=== PATIENT | male | born 1975 | race African-American/Black ===

== ENCOUNTER 2017-06-19 08:35 | Emergency (ER) | payer OTHER ==
[~2017-06-19] VITALS: Ht 177.8 cm; Wt 95.3 kg
[2017-06-19 08:52] VITALS: BP 117/76
[2017-06-19] MEDS ORDERED: NORCO 5-325 TA1 EACH ORAL (09:19)
[2017-06-19] MEDS ORDERED: IBUPROFEN600 MG ORAL (09:19)
[2017-06-19 09:25] VITALS: BP 117/76
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
== END 2017-06-19 09:26 | disposition home or self-care (01) ==
LOC: EMR 09:04
DX: S22.9XXD Fracture of bony thorax, part unspecified, subsequent encounter for fracture with routine healing (principal); V28.4XXD Motorcycle driver injured in noncollision transport accident in traffic accident, subsequent encounter
CPT/HCPCS: 99284

== ENCOUNTER 2018-02-19 06:37 | Emergency (ER) | payer OTHER ==
[~2018-02-19] VITALS: Ht 177.8 cm; Wt 89.8 kg
[~2018-02-19 06:37] MED LIST: IBUPROFEN600 MG ORAL; NORCO 5-325 TA1 EACH ORAL
[2018-02-19 06:55] VITALS: BP 117/74
[2018-02-19] MEDS ORDERED: Methocarbamol 750mg tab ORAL ONE (07:15)
[2018-02-19] MEDS ORDERED: Bacitracin Oint UD TOPIC ONE (07:45)
[2018-02-19] MEDS ORDERED: IBUPROFEN600 MG ORAL (07:55)
[2018-02-19] MEDS ORDERED: ROBAXIN-750750 MG PO (07:55)
[2018-02-19 08:06] VITALS: BP 115/75
[2018-02-19 08:08] VITALS: BP 117/74
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
--- NOTE | 2018-02-19 12:00 | Diagnostic Imaging Report ---
Indications: Knee pain Technique: Three views of the left knee Comparison: None Findings: No acute fractures. No dislocations. Joint spaces are preserved. No radiopaque foreign body. Normal mineralization. Impression: No acute process
== END 2018-02-19 08:10 | disposition home or self-care (01) ==
LOC: EMR 07:32
DX: S51.811A Laceration without foreign body of right forearm, initial encounter (principal); S89.92XA Unspecified injury of left lower leg, initial encounter; Y09 Assault by unspecified means
CPT/HCPCS: 12002; 73562; 99284; Z7502

== ENCOUNTER 2018-02-24 13:43 | Emergency (ER) | payer OTHER ==
[~2018-02-24] VITALS: Ht 180.3 cm; Wt 83.9 kg
[~2018-02-24 13:43] MED LIST changes: +ROBAXIN-750750 MG PO
--- NOTE | 2018-02-24 14:06 | Emergency Room Report ---
History of Present Illness General Chief Complaint: Wound Recheck/Suture Removal Source: Patient Present Illness HPI 42 YO Male presents to the ED c/o kai in the left forearm that need to be removed s/p wound closure 5 days ago. denies fevers, chills, bleeding or discharge from the wound. denies erythema. pt. reports he was rx'd antibiotics however he did not fill the rx and did not take them, he was doing self-care at home. Denies pain at this time. Allergies: Coded Allergies: No Known Allergies (Unverified , 06/19/17) Patient History Past Medical History: see triage record Past Surgical History: none Pertinent Family History: none Immunizations: UTD Reviewed Nursing Documentation: PMH: Agreed; PSxH: Agreed Nursing Documentation-PMH Past Medical History: No Stated History Review of Systems All Other Systems: negative except mentioned in HPI Physical Exam Vital Signs Date Time Temp Pulse Resp B/P (MAP) Pulse Ox O2 Delivery O2 Flow Rate FiO2 02/24/18 13:53 98.0 78 20 127/73 99 Room Air 98.1 Sp02 EP Interpretation: reviewed, normal General Appearance: no apparent distress, alert, GCS 15, non-toxic Head: normocephalic, atraumatic ENT: hearing grossly normal, normal voice Neck: full range of motion Respiratory: lungs clear, normal breath sounds, speaking full sentences Cardiovascular #1: regular rate, rhythm Gastrointestinal: non tender, soft Musculoskeletal: gait/station normal, normal range of motion Neurologic: alert, oriented x3, responsive, motor strength/tone normal, sensory intact, normal gait, speech normal, grossly normal Psychiatric: judgement/insight normal Skin: normal color, no rash, warm/dry, well hydrated, wd healing/no infection noted - laceration of the right forearm with 4 kai. Medical Decision Making PA Attestation Dr. Valdes is my supervising Physician whom patient management has been discussed with. Diagnostic Impression: Primary Impression: Encounter for staple removal ER Course 42 YO Male presents to the ED c/o kai in the left forearm that need to be removed s/p wound closure 5 days ago. denies fevers, chills, bleeding or discharge from the wound. denies erythema. pt. reports he was rx'd antibiotics however he did not fill the rx and did not take them, he was doing self-care at home. Denies pain at this time. Ddx considered but are not limited to laceration, tendon injury, cellulitis, dehiscence. Vital signs: are WNL, pt. is afebrile H&PE are most consistent with: healed laceration of the left forearm no evidence of secondary infection. ORDERS: none required at this time, the diagnosis is clinical ED INTERVENTIONS: - 4 Kai removed. DISCHARGE: At this time pt. is stable for d/c to home. Will provide printed patient care instructions, and any necessary prescriptions. Care plan and follow up instructions have been discussed with the patient prior to discharge. Last Vital Signs Date Time Temp Pulse Resp B/P (MAP) Pulse Ox O2 Delivery O2 Flow Rate FiO2 02/24/18 13:53 98.0 78 20 127/73 99 Room Air 98.1 Disposition: HOME, SELF-CARE Condition: Stable Scripts Bacitracin/Polymyxin B Sulfate (BACITRACIN-POLYMYXIN OINTMENT) 28.35 Gm Oint...g. 1 APPLIC TP BID, #28.3 GM Prov: Lisha Benson 02/24/18 Emollient Combination No.46 (MEDERMA) 20 Gm Cream..g. 1 APPLIC TP TID, #20 GM Prov: Lisha Benson 02/24/18 Patient Instructions: Wound Closure Removal Additional Instructions: Take medications as directed. Follow up with a Primary Care Provider in 3-5 days, even if your symptoms have resolved. --Please review list of primary care clinics, if you do not already have a primary care provider Return sooner to ED if new symptoms occur, or current symptoms become worse. - Please note that this Emergency Department Report was dictated using [employer] stay stitcher technology software, occasionally this can lead to erroneous entry secondary to interpretation by the dictation equipment. Lisha Benson February 24, 2018 14:06
[2018-02-24] MEDS ORDERED: BACITRACIN-P28.35 GM TP (14:17)
[2018-02-24] MEDS ORDERED: MEDERMA20 GM TP (14:17)
[2018-02-24 14:29] VITALS: BP 135/85
[2018-02-24 14:30] VITALS: BP 135/85
== END 2018-02-24 14:33 | disposition home or self-care (01) ==
LOC: EMR 14:11
DX: S51.811D Laceration without foreign body of right forearm, subsequent encounter (principal); X58.XXXD Exposure to other specified factors, subsequent encounter; Z48.02 Encounter for removal of sutures
CPT/HCPCS: 99284

== ENCOUNTER 2019-08-21 17:29 | Emergency (ER) | payer OTHER ==
[~2019-08-21] VITALS: Ht 177.8 cm; Wt 92.1 kg
[~2019-08-21 17:29] MED LIST changes: +BACITRACIN-P28.35 GM TP; +MEDERMA20 GM TP; +NKM
[2019-08-21 18:00] VITALS: BP 129/86
[2019-08-21 18:14] LABS: APPEARANCE,URINE CLEAR; BASOPHILS % (AUTO) 1.2 % (0.0-2.0); BILIRUBIN, URINE NEGATIVE (NEGATIVE); EOSINOPHILS % (AUTO) 0.6 % (0.0-3.0); GLUCOSE, URINE (UA) NEGATIVE (NEGATIVE); HEMATOCRIT 43.6 % (42.0-52.0); KETONES,URINE NEGATIVE (NEGATIVE); LEUKOCYTE ESTERASE ,URINE NEGATIVE (NEGATIVE); LYMPHOCYTES % (AUTO) 9.9 % (20.0-45.0); MEAN CORPUSCULAR VOLUME 86 FL (80-99); NEUTROPHILS % (AUTO) 82.3 % (45.0-75.0); NITRITE,URINE NEGATIVE (NEGATIVE); PH,URINE 6 (4.5-8.0); PLATELET COUNT 251 K/UL (150-450); PROTEIN,URINE NEGATIVE (NEGATIVE); RED BLOOD COUNT 5.07 M/UL (4.70-6.10); RED CELL DISTRIBUTION WIDTH 10.9 % (11.6-14.8); UROBILINOGEN,URINE 1 MG/DL (0.0-1.0); WHITE BLOOD COUNT 12.7 K/UL (4.8-10.8)
[2019-08-21 18:15] LABS: COLOR,URINE YELLOW
[2019-08-21 18:27] LABS: ANION GAP 11 mmol/L (5-15); BLOOD UREA NITROGEN 9 mg/dL (7-18); CALCIUM 9.6 MG/DL (8.5-10.1); CARBON DIOXIDE 25 MMOL/L (21-32); CHLORIDE 106 MMOL/L (98-107); CREATININE 1.5 MG/DL (0.55-1.30); POTASSIUM 4.4 MMOL/L (3.5-5.1); SODIUM 142 MMOL/L (136-145)
[2019-08-21 18:32] LABS: ALANINE AMINOTRANSFERASE 28 U/L (12-78); ALBUMIN 4.4 G/DL (3.4-5.0); ALBUMIN/GLOBULIN RATIO 1.3 (1.0-2.7); ALKALINE PHOSPHATASE 64 U/L (46-116); ASPARTATE AMINO TRANSFERASE 24 U/L (15-37); BILIRUBIN,TOTAL 0.6 MG/DL (0.2-1.0)
--- NOTE | 2019-08-21 18:40 | NUR ---
ED Nurse Note:pt. came with c/o of near syncopal episode, he is drugs user, A/Ox4 ambulatory with steady gait, blood and urine sent to labs, pt. received IV fluids and meds
--- NOTE | 2019-08-21 19:13 | Diagnostic Imaging Report ---
Indication: Headache Technique: Contiguous 5 mm thick transaxial imaging of the head obtained in a Siemens Sensation [address] scanner. Soft tissue and bone windows generated. Automatic Exposure Control was utilized. Total Dose length Product (DLP): [address] Dose Index Volume (CTDIvol): 62.7 mGy Comparison: none Findings: The size and configuration of the cortical sulci, basal cisterns, and ventricles are within normal limits for age. There is no mass effect, midline shift, or edema identified. There is no evidence of acute hemorrhage or abnormal intra-axial or extra-axial fluid collections. The bones and soft tissues are unremarkable. Impression: No mass effect, edema or acute bleed. [facility] has communicated the preliminary results to the Emergency Department. Their findings are largely concordant with this report. The CT scanner at [facility] is accredited by the [employer] and the scans are performed using dose optimization techniques as appropriate to a performed exam including Automatic Exposure control.
[2019-08-21 19:16] VITALS: BP 125/77
--- NOTE | 2019-08-21 19:16 | NUR ---
ED Nurse Note: Received report from Jessica ADAMES. Pt seen sleeping quitely in bed. No SOB. Breathing even and unlabored. Afebrile. On NS 1L, patent and infusing well.
--- NOTE | 2019-08-21 19:34 | Emergency Room Report ---
History of Present Illness General Chief Complaint: Syncope Source: Patient Present Illness HPI 43-year-old male with no significant past medical history here complaining of having a blackout an hour prior to arrival after consumption of alcohol as well as using PCP. Patient denies any head injury however reports that there is a cut on his right lower eyelid. Denies blurry vision, headache and dizziness. Denies nausea vomiting. Denies head injury and loss of consciousness, chest pain, shortness of breath, palpitation, abdominal pain. Has not taken medication for symptom relief. Patient reports that he worked long hours yesterday and was super Tired feeling exhausted and consumed alcohol use PCP today. Denies other associated symptoms, urinary symptoms, recent URI symptoms , photophobia, recent cardiac disease, hypertension, and other associated symptoms. Patient is also a daily tobacco smoker. Allergies: Coded Allergies: No Known Allergies (Unverified , 06/19/17) Patient History Past Medical History: see triage record Past Surgical History: unable to obtain Pertinent Family History: none Immunizations: UTD Reviewed Nursing Documentation: PMH: Agreed; PSxH: Agreed Nursing Documentation-PMH Past Medical History: No Stated History Review of Systems All Other Systems: negative except mentioned in HPI Physical Exam Vital Signs Date Time Temp Pulse Resp B/P (MAP) Pulse Ox O2 Delivery O2 Flow Rate FiO2 08/21/19 17:35 98.2 89 18 129/86 (100) 99 Room Air Sp02 EP Interpretation: reviewed, normal General Appearance: no apparent distress, alert, GCS 15, non-toxic Head: normocephalic, atraumatic Eyes: bilateral eye normal inspection, bilateral eye PERRL ENT: hearing grossly normal, normal pharynx, no angioedema, normal voice Neck: full range of motion, supple, thyroid normal, no meningismus, no bony tend, supple/symm/no masses Respiratory: chest non-tender, lungs clear, normal breath sounds, no rhonchi, no wheezing, speaking full sentences Cardiovascular #1: regular rate, rhythm, no edema, no murmur Cardiovascular #2: 2+ carotid (R), 2+ carotid (L) Gastrointestinal: normal bowel sounds, non tender, soft, non-distended, no guarding, no hernia, no rebound Genitourinary: no CVA tenderness Musculoskeletal: back normal, gait/station normal, normal range of motion, non- tender Neurologic: alert, oriented x3, responsive, motor strength/tone normal, sensory intact, speech normal Psychiatric: judgement/insight normal, memory normal, mood/affect normal, no suicidal/homicidal ideation Skin: no rash Lymphatic: no adenopathy Medical Decision Making PA Attestation Diagnosis and treatment plans were reviewed and discussed with my supervising physician Dr. Matehws Diagnostic Impression: Primary Impression: Facial contusion Additional Impressions: Black-out (not amnesia) PCP (phencyclidine) abuse Alcohol abuse ER Course 43-year-old male with no significant past medical history here complaining of having a blackout an hour prior to arrival after consumption of alcohol as well as using PCP. Patient denies any head injury however reports that there is a cut on his right lower eyelid. Denies blurry vision, headache and dizziness. Denies nausea vomiting. Denies head injury and loss of consciousness, chest pain, shortness of breath, palpitation, abdominal pain. Has not taken medication for symptom relief. Patient reports that he worked long hours yesterday and was super Tired feeling exhausted and consumed alcohol use PCP today. Denies other associated symptoms, urinary symptoms, recent URI symptoms , photophobia, recent cardiac disease, hypertension, and other associated symptoms. Patient is also a daily tobacco smoker. Ddx considered but are not limited to: cerebral hematoma, concussion, skull fracture, head contusion Vital signs: are WNL, pt. is afebrile H&PE are most consistent with: Facial contusion,, PCP and alcohol abuse ORDERS: head CT no contrast, EKG, chest x-ray, CBC, CMP, UA, Zofran, omeprazole ED INTERVENTIONS: NS blood bolus, Zofran, Pepcid DISCHARGE: At this time pt. is stable for d/c to home. Will provide printed patient care instructions, and any necessary prescriptions. Care plan and follow up instructions have been discussed with the patient prior to discharge. Take medication as directed, avoid using alcohol on PCP, follow with your primary care provider. Cardiac versus neurological causes of blackouts were ruled out. EKG Diagnostic Results Rate: normal Rhythm: NSR ST Segments: no acute changes Other Impression No acute ST changes Chest X-Ray Diagnostic Results Chest X-Ray Diagnostic Results : Chest X-Ray Ordered: Yes # of Views/Limited/Complete: 1 View Indication: Other EP Interpretation: Yes ISA Xray: Interpretation reviewed, by supervising MD, and agrees with findings. Interpretation: no consolidation, no effusion, no pneumothorax Impression: No acute disease Electronically Signed by: Raiza Dupree PA-C CT/MRI/US Diagnostic Results CT/MRI/US Diagnostic Results : Imaging Test Ordered: Head CT no contrast Impression No intracranial hemorrhage, no skull fracture Last Vital Signs Date Time Temp Pulse Resp B/P (MAP) Pulse Ox O2 Delivery O2 Flow Rate FiO2 08/21/19 19:16 98.5 87 19 125/77 98 Room Air Disposition: HOME, SELF-CARE Condition: Stable Scripts Ibuprofen* (MOTRIN*) 600 Mg Tablet 600 MG ORAL Q6H PRN for For Pain, #30 TAB Prov: Raiza Monet 08/21/19 Omeprazole (OMEPRAZOLE) 20 Mg Tablet.dr 20 MG ORAL DAILY, #20 TAB Prov: Raiza Monet 08/21/19 Ondansetron (Zofran) 4 Mg Tablet 4 MG ORAL Q6H PRN for Nausea & Vomiting, #10 TAB Prov: Raiza Monet 08/21/19 Referrals: [facility],REFERR[facility] (PCP) Patient Instructions: Alcohol Intoxication, [id number], Facial or Scalp Contusion, [id number] Additional Instructions: Take medication as directed, avoid using PCP as well as alcohol. Follow-up with your primary care provider. If worsening symptoms return to the emergency room. Raiza Monet Aug 21, 2019 19:34
[2019-08-21] MEDS ORDERED: OMEPRAZOLE20 M3 ORAL (19:35)
[2019-08-21] MEDS ORDERED: ZOFRAN4 M1 ORAL (19:35)
[2019-08-21] MEDS ORDERED: IBUPROFEN600 MG ORAL (19:35)
[2019-08-21 19:43] VITALS: BP 125/77
--- NOTE | 2019-08-21 19:43 | NUR ---
ED Nurse Note: Pt cleared by ERMD for discharge. DC instructions/prescription was given and explained to pt and verbalized understanding of teachings. All medical deviecs such as ID band and IV line removed. Pt is AAO x4, ambulatory and left with all personal belongings.
--- NOTE | 2019-08-22 14:20 | Cardiology Report ---
APPROVED REPORT EKG Measurement Heart [id number] MD [id number] Normal sinus rhythm Normal ECG
--- NOTE | 2019-08-22 14:20 | Diagnostic Imaging Report ---
Indication: Chest pain Comparison: None A single view chest radiograph was obtained. Findings: Cardiomediastinal appearance is within normal limits for age. The lungs are clear. Pulmonary vascularity is appropriate. The diaphragmatic contour is smooth and costophrenic angles are sharp. No pleural effusions are identified. The bones are unremarkable. Impression: No acute findings
== END 2019-08-21 19:43 | disposition home or self-care (01) ==
LOC: EMR 17:48
DX: S00.83XA Contusion of other part of head, initial encounter (principal); R55 Syncope and collapse; F16.10 Hallucinogen abuse, uncomplicated; F10.10 Alcohol abuse, uncomplicated; R07.9 Chest pain, unspecified; F17.200 Nicotine dependence, unspecified, uncomplicated; X58.XXXA Exposure to other specified factors, initial encounter; Y92.9 Unspecified place or not applicable
CPT/HCPCS: 36415; 70450; 71045; 80053; 80307; 81001; 84484; 85025; 85610; 85730; 93005; 96361; 96374; 96375; J2405; S0028; Z7502; 99284; J7030

== ENCOUNTER 2019-12-08 01:33 | Emergency (ER) | payer OTHER ==
[~2019-12-08] VITALS: Ht 177.8 cm; Wt 91.6 kg
[~2019-12-08 01:33] MED LIST changes: +OMEPRAZOLE20 M3 ORAL; +ZOFRAN4 M1 ORAL
[2019-12-08 01:45] VITALS: BP 148/97
--- NOTE | 2019-12-08 01:45 | NUR ---
ED Nurse Note: Pt walked into ED for c/o cough x1 week and CP that is sharp in nature. Pt notes recent illness. Pt is aaox4, no cardiac or respiratory distress noted.
[2019-12-08] MEDS ORDERED: GUAIFENESIN DM118 M1 ORAL (02:19)
[2019-12-08] MEDS ORDERED: ZITHROMAX250 MG ORAL (02:19)
--- NOTE | 2019-12-08 02:19 | Emergency Room Report ---
History of Present Illness General Chief Complaint: Upper Respiratory Illness Source: Patient Present Illness HPI This a 44-year-old male with no past medical history. He presents with chief complaint of coughing and chest pain. Ongoing for a week. Also with subjective fever. Decreased activities. He said he was weak but not getting better after weeks or so he came in. Coughing is nonproductive nature. No other complaint. Worse with inspiration. Better with rest. Allergies: Coded Allergies: No Known Allergies (Unverified , 06/19/17) Patient History Past Medical History: see triage record, old chart reviewed Past Surgical History: none Pertinent Family History: none Social History: Reports: smoking Immunizations: other Reviewed Nursing Documentation: PMH: Agreed; PSxH: Agreed Nursing Documentation-PMH Past Medical History: No Stated History Review of Systems Constitutional: Reports: chills, fever, malaise, weakness Eye: Denies: eye pain, blurred vision ENT: Denies: ear pain, nose congestion, throat swelling Respiratory: Reports: cough; Denies: shortness of breath Cardiovascular: Reports: chest pain; Denies: palpitations Gastrointestinal: Denies: abdominal pain, diarrhea, nausea, vomiting Musculoskeletal: Denies: back pain, joint pain Skin: Denies: rash Neurological: Denies: headache, numbness Endocrine: Denies: increased thirst, increased urine Hematologic/Lymphatic: Denies: easy bruising All Other Systems: negative except mentioned in HPI Physical Exam Vital Signs Date Time Temp Pulse Resp B/P (MAP) Pulse Ox O2 Delivery O2 Flow Rate FiO2 12/08/19 01:35 98.1 79 18 148/97 (114) 97 Room Air Vitals normal except for high blood pressure Sp02 EP Interpretation: reviewed, normal General Appearance: well appearing, no apparent distress, alert, other - Patient was sleeping comfortably Head: normocephalic, atraumatic Eyes: bilateral eye PERRL, bilateral eye EOMI ENT: hearing grossly normal, normal pharynx Neck: full range of motion, supple, no meningismus Respiratory: chest non-tender, lungs clear, normal breath sounds Cardiovascular #1: regular rate, rhythm, no murmur Gastrointestinal: normal bowel sounds, non tender, no mass, no organomegaly, no bruit, non-distended Musculoskeletal: back normal, normal range of motion, gait/station normal Psychiatric: mood/affect normal Medical Decision Making Diagnostic Impression: Primary Impression: Cough ER Course Patient with a cough that not resolving after a week. Subjective fever. This is most likely a viral infection. Because been going on for a week we will put him on antibiotics. He does have a history of PCP abuse. No evidence of ACS, PE, dissection Tamiflu. Will discharge home. Last Vital Signs Date Time Temp Pulse Resp B/P (MAP) Pulse Ox O2 Delivery O2 Flow Rate FiO2 12/08/19 01:35 98.1 79 18 148/97 (114) 97 Room Air Status: unchanged Disposition: HOME, SELF-CARE Condition: Stable Scripts Guaifenesin/Dextromethorphan* (Guaifenesin Dm Syrup*) 5 Ml Syrup 10 ML ORAL Q6H PRN for FOR COUGH, #118 ML Prov: Luis Bah MD 12/08/19 Azithromycin* (ZITHROMAX*) 250 Mg Tablet 250 MG ORAL DAILY, #6 TAB 0 Refills Take two tables once daily for 1 day, then one tablet once daily for 4 days. Prov: Luis Bah MD 12/08/19 Referrals: [facility],REFERRING (PCP) Patient Instructions: Upper Respiratory Infection, Adult Additional Instructions: Stop smoking. Follow-up with your doctor in 7 days. Return if symptoms worsen. Luis Bah MD Dec 08, 2019 02:19
[2019-12-08] MEDS ORDERED: Albuterol ud Inhalation HHN ONE (02:30)
[2019-12-08 02:50] VITALS: BP 148/97
--- NOTE | 2019-12-08 02:50 | NUR ---
ER DISCHARGE NOTE: Patient is cleared to be discharged per ERMD, pt is aox4, on room air, with stable vital signs. pt was given dc and prescription instructions, pt was able to verbalize understanding, pt id band removed. pt is able to ambulate with steady gait. pt took all belongings.
== END 2019-12-08 02:50 | disposition home or self-care (01) ==
LOC: EMR 02:14
DX: R05 Cough (principal); R07.9 Chest pain, unspecified; R53.1 Weakness; R50.9 Fever, unspecified
CPT/HCPCS: 99283

== ENCOUNTER 2020-09-17 08:42 | Emergency (ER) | payer OTHER ==
[~2020-09-17] VITALS: Ht 177.8 cm; Wt 97.5 kg
[~2020-09-17 08:42] MED LIST changes: +GUAIFENESIN DM118 M1 ORAL; +ZITHROMAX250 MG ORAL
--- NOTE | 2020-09-17 09:00 | NUR ---
ED Nurse Note: Pt ambulated to ED from home d/t lower back pain that has been going on for a week. Pt is AOx4, calm and cooperative to care, pt denies any dysuria nor any recent injury, VSS, no acute distress noted.
[2020-09-17 09:03] VITALS: BP 154/92
--- NOTE | 2020-09-17 09:09 | Emergency Room Report ---
History of Present Illness General Chief Complaint: Back Pain-No Injury Source: Patient Present Illness HPI Disclaimer: Please note that this report is being documented using DRAGON technology. This can lead to erroneous entry secondary to incorrect interpretation by the dictating instrument. HPI: 45-year-old male with no reported medical history presents for evaluation of back pain. 2 weeks ago he bent over to pick something up felt a pain in his lower back. Nonradiating. Located in the lower lumbar region. Denies numbness, tingling or weakness in the lower extremities. Denies saddle anesthesia. Urinating without difficulty. Denies urinary or fecal in continence. Denies dysuria, hematuria, abdominal pain, nausea, vomiting, diarrhea, fever, chills, cough, chest pain, shortness of breath or other symptoms. Has not taken any medication prior to arrival. Exacerbated by bending and twisting motion somewhat relieved by rest. Pain appears to come and go and is more severe today. No trauma reported. 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 EOMI. Resp: Normal work of breathing Skin: Intact. No abrasions, laceration or rash over the exposed skin MSK: Normal tone and bulk. Moving all extremities. No obvious deformity. Neuro: Awake and alert. Mentating appropriately. Ambulating without di fficulty. Strength is 5/5 at the hips, knees and ankles. No saddle anesthesia. Spine: No tenderness, step-off and deformity in the cervical or thoracic spine. Moderate paraspinal tenderness bilaterally in the lower lumbar spine extending over the gluteus. No significant midline tenderness step-off or deformity. Medical Decision Making ER Course 45-year-old male presents for evaluation of back pain after bending over 2 weeks ago. Concern for degenerative disc disease, muscle strain, muscle spasm, herniated disc, sciatica among others. Little clinical concern for spinal epidural abscess, metastasis or cauda equina syndrome based on physical exam and history. Do not believe the patient requires emergent labs or imaging as there is no reported trauma. Will treat symptomatically and follow-up with outpatient. Last Vital Signs Date Time Temp Pulse Resp B/P (MAP) Pulse Ox O2 Delivery O2 Flow Rate FiO2 09/17/20 09:03 98.8 18 154/92 95 Room Air 09/17/20 08:48 78 Disposition: HOME, SELF-CARE Condition: Stable Scripts Hydrocodone Bit/Acetaminophen 5-325* (NORCO 5-325 TABLET*) 1 Each Tablet 1 TAB ORAL Q6H PRN for FOR PAIN, #10 TAB 0 Refills Prov: Cuong Sánchez MD 09/17/20 Lidocaine (Lidocaine) 1 Each Adh..patch 700 MG TP DAILY, #30 PATCH Prov: Cuong Sánchez MD 09/17/20 Methocarbamol* (ROBAXIN-750*) 750 Mg Tablet 750 MG PO QID, #28 TAB 0 Refills Prov: Cuong Sánchez MD 09/17/20 Ibuprofen* (MOTRIN*) 600 Mg Tablet 600 MG ORAL Q6H PRN for For Pain, #30 TAB 0 Refills Prov: Cuong Sánchez MD 09/17/20 Cuong Sánchez MD Sep 17, 2020 09:09
[2020-09-17] MEDS ORDERED: IBUPROFEN600 M1 ORAL (09:11)
[2020-09-17] MEDS ORDERED: LIDOCAINE700 M1 TP (09:11)
[2020-09-17] MEDS ORDERED: ROBAXIN-750750 MG PO (09:11)
[2020-09-17] MEDS ORDERED: NORCO 5-325 TA1 EAC1 ORAL (09:11)
[2020-09-17] MEDS ORDERED: HYDROcodone/Acetamin 5/325 tab ONE (09:12)
[2020-09-17] MEDS ORDERED: HYDROcodone/Acetamin 5/325 tab ORAL ONE (09:15)
[2020-09-17 09:35] VITALS: BP 148/90
== END 2020-09-17 09:35 | disposition home or self-care (01) ==
LOC: EMR 09:00 → CANBEDREQ 10:01
DX: M54.5 Low back pain (principal)
CPT/HCPCS: 99282

== ENCOUNTER 2020-09-19 09:46 | Emergency (ER) | payer OTHER ==
[~2020-09-19] VITALS: Ht 172.7 cm; Wt 81.6 kg
[~2020-09-19 09:46] MED LIST changes: +IBUPROFEN600 M1 ORAL; +LIDOCAINE700 M1 TP; +NORCO 5-325 TA1 EAC1 ORAL
--- NOTE | 2020-09-19 10:07 | NUR ---
ED Nurse Note: PT is ambulatory and walked in from home. He staes that he recently was working out of state, in [facility], and while he was working he "tweaked his back." He stated that he woke up and it felt worse today. He states the pain in from his lower back and radiates to the right leg.
--- NOTE | 2020-09-19 10:19 | NUR ---
ELOPEMENT: Pt became aggitated with staff and said "i dont want to be here in the hospital anymore, I feel uncomfortable" and walked out into the waiting room. Pt walked with a steady gait, AxOx4, breathing was even and unlabored, no signs of distress noted.
--- NOTE | 2020-09-19 10:20 | NUR ---
ED Nurse Note: pt left without being seen, attempted to assess initial vitals but patient stated he wanted to leave.
--- NOTE | 2020-09-19 10:36 | NUR ---
ED Nurse Note: Pt as re-educated by the triage nurse to ED procedures and protocol and the pt decided that he would like to be seen by the physician again. Pt was understanding and returned to the room. He is ow chavez and cooperative with staff. Addendum: 09/19/20 at 1037 by BELLA *calm and cooperative
--- NOTE | 2020-09-19 10:40 | NUR ---
ED Nurse Note: ED MD @ bedside
[2020-09-19 10:48] VITALS: BP 147/94
[2020-09-19] MEDS ORDERED: NORCO 5-325 TA1 EAC1 ORAL (11:00)
[2020-09-19] MEDS ORDERED: IBUPROFEN600 M1 ORAL (11:00)
[2020-09-19] MEDS ORDERED: ROBAXIN-750750 MG PO (11:00)
[2020-09-19] MEDS ORDERED: Ketorolac 30mg Inj IM ONE (11:00)
[2020-09-19] MEDS ORDERED: Methocarbamol 750mg tab ORAL ONE (11:00)
[2020-09-19] MEDS ORDERED: LIDOCAINE700 M1 TP (11:00)
[2020-09-19 11:10] VITALS: BP 126/68
--- NOTE | 2020-09-19 11:10 | NUR ---
ER DISCHARGE NOTE: Patient is cleared to be discharged per ERMD, pt is aox4, on room air, with stable vital signs. pt was given dc and prescription instructions, pt was able to verbalize understanding, pt id band removed without complications. pt is able to ambulate with steady gait. pt took all belongings. Addendum: 09/19/20 at 1114 by BELLA Pt discharged to home. By private car and friend is the team cdl driver.
--- NOTE | 2020-09-20 07:01 | Emergency Room Report ---
History of Present Illness General Chief Complaint: Back Pain-No Injury Source: Patient Present Illness HPI 45-year-old male presents to ED for evaluation. Complaining of back pain. Was seen here last week for the same back pain. States that he was prescribed medication but states that he thought it was sent to his pharmacy and it was not. Is here for his prescriptions. Pain is dull, 7 out of 10, nonradiating. Denies bowel or bladder incontinence. Denies any leg or motor weakness. No other aggravating relieving factors. 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 Patient History Past Medical History: none Past Surgical History: none Pertinent Family History: none Social History: Denies: smoking, alcohol use, drug use Immunizations: UTD Reviewed Nursing Documentation: PMH: Agreed; PSxH: Agreed Nursing Documentation-PMH Past Medical History: No Stated History Review of Systems All Other Systems: negative except mentioned in HPI Physical Exam Vital Signs Date Time Temp Pulse Resp B/P (MAP) Pulse Ox O2 Delivery O2 Flow Rate FiO2 09/19/20 09:50 98.8 89 18 147/94 (111) 98 Room Air Sp02 EP Interpretation: reviewed, normal General Appearance: no apparent distress, alert, GCS 15, non-toxic Head: normocephalic, atraumatic Eyes: bilateral eye normal inspection, bilateral eye PERRL ENT: hearing grossly normal, normal pharynx, no angioedema, normal voice Neck: full range of motion, supple/symm/no masses Respiratory: chest non-tender, lungs clear, normal breath sounds, speaking full sentences Cardiovascular #1: regular rate, rhythm, no edema Cardiovascular #2: 2+ carotid (R), 2+ carotid (L), 2+ radial (R), 2+ radial (L), 2+ dorsalis pedis (R), 2+ dorsalis pedis (L) Gastrointestinal: normal bowel sounds, non tender, soft, non-distended, no guarding, no rebound Rectal: deferred Genitourinary: normal inspection, no CVA tenderness Musculoskeletal: back normal, normal range of motion, gait/station normal, tender - Paraspinal lumbar tenderness Neurologic: alert, motor strength/tone normal, oriented x3, sensory intact, responsive, speech normal Psychiatric: judgement/insight normal, memory normal, mood/affect normal, no suicidal/homicidal ideation Reflexes: 3+ bicep (R), 3+ bicep (L), 3+ tricep (R), 3+ tricep (L), 3+ knee (R), 3+ knee (L) Skin: no rash Lymphatic: no adenopathy Medical Decision Making Diagnostic Impression: Primary Impression: Back pain Qualified Codes: M54.5 - Low back pain ER Course Hospital Course 45-year-old male presents with back pain. Unable to receive his prescriptions last week Differential diagnoses include: pyelonephritis, kidney stone, muscle strain, Lspine fracture Clinical course Patient placed on stretcher. After initial history physical exam reveals male in no acute distress. There is no midline tenderness. Pain is localized to the lower back. Negative straight leg raise. Ordered pain meds here. Will provide his prescriptions paper copy. Safe for discharge with close outpatient follow-up I will provide Ortho referrals diagnosis - back pain Stable and discharged to home with prescription for Motrin, Robaxin, Lidoderm, [place]. Followup with PMD. Return to ED if symptoms recur or worsen Last Vital Signs Date Time Temp Pulse Resp B/P (MAP) Pulse Ox O2 Delivery O2 Flow Rate FiO2 09/19/20 11:10 98.3 80 14 126/68 99 Room Air Status: improved Disposition: HOME, SELF-CARE Condition: Stable Scripts Hydrocodone Bit/Acetaminophen 5-325* (NORCO 5-325 TABLET*) 1 Each Tablet 1 TAB ORAL Q6H PRN for FOR PAIN, #10 TAB 0 Refills Prov: Clifford England MD 09/19/20 Lidocaine (Lidocaine) 1 Each Adh..patch 700 MG TP DAILY, #30 PATCH Prov: Clifford England MD 09/19/20 Methocarbamol* (ROBAXIN-750*) 750 Mg Tablet 750 MG PO QID, #28 TAB 0 Refills Prov: Clifford England MD 09/19/20 Ibuprofen* (MOTRIN*) 600 Mg Tablet 600 MG ORAL Q6H PRN for For Pain, #30 TAB 0 Refills Prov: Clifford England MD 09/19/20 Referrals: NOT CHOSEN [facility] Open 24 hour /7 days a week by Appointment Only [address] [facility] [id number] Patient Instructions: Back Pain, Adult Clifford England MD Sep 20, 2020 07:01
== END 2020-09-19 11:10 | disposition home or self-care (01) ==
LOC: EMR 11:04
DX: M54.5 Low back pain (principal)
CPT/HCPCS: 96372; J1885; Z7502; 99283